=== PATIENT | female | born 1940 | race Caucasian/White ===

== ENCOUNTER 2022-03-05 10:59 | Emergency (ER) | payer MEDICAID ==
[~2022-03-05] VITALS: Ht 149.9 cm; Wt 70.3 kg
[2022-03-05 11:03] VITALS: BP 120/47
--- NOTE | 2022-03-05 11:05 | NUR ---
BIBA to bed 12
--- NOTE | 2022-03-05 11:10 | NUR ---
82 y/o [place]o mechanical fall yesterday. Per EMS, patient fell from train platform and landed onto rib cage along train tracks. EMS reports 4ft fall, denies LOC. Pt with 8/10 R rib pain worsens with inspiration, movement, talking. SpO2 98% on room air. Lung sounds CTA. Abrasion noted to R forearm, no bleeding or deformity noted. front desk monitor in place. Bed locked in lowest position, side rails x 1. A&Ox4 states pain upon inspiration. PMH: DM2, HLD Meds: metformin, atorvastatin A: Ibuprofen, motrin
--- NOTE | 2022-03-05 11:38 | NUR ---
Dr. Montiel is evaluating patient at bedside
--- NOTE | 2022-03-05 11:46 | NUR ---
Patient W/C assisted to RAD.
--- NOTE | 2022-03-05 12:21 | NUR ---
pt o2 saturation dropped to 92 when sleeping . upon awaking o2 back to 100.
--- NOTE | 2022-03-05 12:27 | NUR ---
pt provided with blanket
[2022-03-05 12:56] VITALS: BP 122/64
--- NOTE | 2022-03-05 13:42 | NUR ---
The patient's care was reviewed and supervised by Walter Hidalgo RN.
[2022-03-05] MEDS ORDERED: ACETAMINOPHEN 325 MG TAB PO ONE (14:15)
--- NOTE | 2022-03-05 14:25 | NUR ---
Patient is requesting for transportation to pharmacy in [place], [place] and refusing transportation back home. Patient is adamant about being discharged and finding own transportation home. Secondary RN at bedside. Charge nurse, warehouse checker made aware of patient's request and refusal of transportation to home.
--- NOTE | 2022-03-05 14:35 | NUR ---
Patient discharged with v/s stable. Written and verbal after care instructions given and explained. Patient verbalized understanding. Ambulatory with steady gait. All questions addressed prior to discharge. Advised to follow up with PMD.
== END 2022-03-05 14:35 | disposition home or self-care (01) ==
LOC: MED 10:59
DX: S50.11XA Contusion of right forearm, initial encounter (principal); S20.211A Contusion of right front wall of thorax, initial encounter; S60.222A Contusion of left hand, initial encounter; S60.032A Contusion of left middle finger without damage to nail, initial encounter; S60.042A Contusion of left ring finger without damage to nail, initial encounter; M25.561 Pain in right knee; M25.562 Pain in left knee; E11.9 Type 2 diabetes mellitus without complications; E78.5 Hyperlipidemia, unspecified; Z90.49 Acquired absence of other specified parts of digestive tract; Z90.710 Acquired absence of both cervix and uterus; Z98.890 Other specified postprocedural states; Z88.6 Allergy status to analgesic agent; Z88.5 Allergy status to narcotic agent; W18.39XA Other fall on same level, initial encounter; Y92.89 Other specified places as the place of occurrence of the external cause; Y93.89 Activity, other specified; Y99.8 Other external cause status
CPT/HCPCS: 71101; 73090; 73140; 99284; Q0092